=== PATIENT | female | born 1965 | race Caucasian/White ===

== ENCOUNTER 2019-01-14 16:17 | Inpatient (IN) ==
[2019-01-14] MEDS ORDERED: LOVENOX 1 MG/KG SUBQ ONE (16:54)
[2019-01-14] MEDS ORDERED: ATIVAN IV ONE (17:00)
[2019-01-14] MEDS ORDERED: LOVENOX SUBQ ONE (17:15)
[2019-01-14 17:18] LABS: BASO# 0.05 X1000 (0.0-0.2); BASO% 0.4 % (0.0-0.8); EOS# 0.31 X1000 (0.0-0.7); EOS% 2.3 % (0.0-10.0); HEMATOCRIT 40.7 % (37.0-47.0); IMM GRAN# 0.16 X1000 (0.0-0.04); IMM GRAN% 1.2 % (0.0-0.5); LYMPH# 2.26 X1000 (1.2-3.4); LYMPH% 16.5 % (20.5-51.1); MCH 28.9 PG (27-31); MCHC 34.4 g/dL (33-37); MCV 83.9 FL (81-99); MONO# 1.25 X1000 (0.11-0.59); MONO% 9.1 % (1.7-9.3); MPV 8.3 FL (7.4-10.4); NEUT# 9.66 X1000 (1.4-6.5); NEUT% 70.5 % (42.2-75.2); PLT 163 X1000 (130-400); RBC 4.85 XMIL (4.2-5.4); RDW 12.7 % (11.5-14.5); WBC 13.69 X1000 (4.8-10.8)
[2019-01-14 17:30] LABS: INR 0.94; PROTIME 13.4 Seconds (11.0-16.0)
[2019-01-14 17:32] LABS: PTT 76.9 Seconds (22.3-41.8)
[2019-01-14 18:15] LABS: AGAP 13; ALB/GLOB RATIO 1.6; ALBUMIN 4.3 g/dL (3.5-5.0); ALKALINE PHOSPHATASE 145 U/L (32-104); BUN 13 mg/dL (8-22); CALCIUM 8.9 mg/dL (8.8-10.2); CHLORIDE 95 mmol/L (98-107); COSMO 273; CREATININE 0.8 mg/dL (0.5-0.9); ESTIMATED GFR > 60; GLUCOSE 251 mg/dL (70-104); GOT 14 U/L (10-30); GPT 13 U/L (10-36); POTASSIUM 4.1 mmol/L (3.5-5.1); SODIUM 132 mmol/L (136-145); TCO2 24 mmol/L (25-35); TOTAL BILIRUBIN 0.56 mg/dL (0.20-1.00)
[2019-01-14] MEDS ORDERED: ULTRAM PO ONE (19:10)
--- NOTE | 2019-01-14 19:35 | Diag Imaging Result Doc PS360 ---
CT ANGIOGRM PULMONARY ARTERIES - 01/14/2019 INDICATION: pe TECHNIQUE: Axial CT images were obtained after administering intravenous contrast. Coronal MIP images were generated. COMPARISON: None FINDINGS: There are several bilateral pulmonary emboli. The largest completely fills the left lower lobe pulmonary artery. The others are scattered throughout segmental arteries. Heart size is normal with no pericardial effusion. There is severe fatty change of the liver. The lungs are clear of infiltrate. There is a granuloma in the left lower lobe. Bones are intact. IMPRESSION: 1. Several bilateral pulmonary emboli. 2. Severe fatty liver. 3. This report was discussed with Dr. Mac on 01/14/2019 at 7:30 PM and was readback. This exam was performed using automated exposure control, adjustment of mA or kV according to patient size, and/or use of iterative reconstruction technique Electronically signed by Steven Mccarthy 01/14/2019 7:33 PM
--- NOTE | 2019-01-14 19:41 | PROVIDER DOCUMENTATION ---
This chart was entered by Sowmya Mcdaniels Scribe, acting as scribe for Sonia Mac MD. HPI-Musculoskeletal Pain/Inj - GENERAL Chief Complaint: Extremity Pain Stated Complaint: BLOOD CLOT DR REFERRED Time Seen by Provider: 01/14/19 16:36 Source: patient - HX OF PRESENT ILLNESS-MUSKULOSKELTAL Nature of Presenting Problem: 53 yof presents to the ed per referal of [facility] after US was done today and pt has +DVT in RLE. pt stys has had nausea, pain and swelling to RLE with sob for 2 days. pt on exam has swollen red and painful RLE Quality of Pain: reports: aching Severity in ED: moderate Onset/Duration: 2 days ago Timing: still present, getting worse Modifying Factors: worse with: movement, palpation Any recent injury?: No Locality of Occurance: Home Similar Symptoms Previously?: No Recently seen or treated by another doctor?: Yes ([facility]) Review of Systems - Adult - REVIEW OF SYSTEMS - ADULT Constitutional: denies: chills, fever Eyes: reports: no symptoms reported Ears, Nose, Mouth & Throat: reports: no symptoms reported Cardiovascular: reports: see HPI, edema. denies: chest pain, palpitations Respiratory: reports: see HPI, shortness of breath. denies: wheezing Gastrointestinal: reports: nausea. denies: abdominal pain, diarrhea, vomiting Genitourinary: reports: no symptoms reported Musculoskeletal: reports: see HPI, other (RLE) Integumentary: reports: no symptoms reported Neurological: denies: dizziness/vertigo, headache/migraines Psychiatric: reports: no symptoms reported Endocrine: reports: no symptoms reported Hematologic/Lymphatic: reports: see HPI, blood clots Allergic/Immunologic: reports: no symptoms reported All Other Systems: Reviewed and Negative Past History - Adult - PAST MEDICAL HISTORY-ADULT Review of Records: reports: Old Records Reviewed, Nursing Assessment Review, Medications Reviewed, Social history reviewed & non-contributory. Major Childhood Illnesses: reports: denies history Cardiovascular: reports: HTN, hyperlipidemia Respiratory: reports: denies history Gastrointestinal: reports: GERD Obstetrical/Gynecological: reports: denies history Genitourinary: reports: denies history Musculoskeletal: reports: denies history Hand Dominance: Right Handed Neurological: reports: denies history Psychiatric: reports: depression Endocrine/Immune: reports: denies history Other Conditions: reports: denies history - PRIOR SURGERIES/PROCEDURES Surgical/Procedure History: reports: cholecystectomy, tonsillectomy - IMMUNIZATION STATUS Childhood Immunizations: See Nurse Assessment Flu Vaccine: See Nurse Assessment - FAMILY HISTORY Family History: reviewed, not pertinent - SOCIAL HISTORY Smoking: cigarettes, less than 1 pack/day Provider spent 3-5 mins advising pt. on dangers of tobacco.: Discussed manners to quit use, and f/u contacts for add'l counseling. Substance Use: denies Alcohol Use Frequency: never Living Situation: family Physical Exam-Injury Related - Physical Exam-Injury Related Initial Vital Signs Reviewed: Yes General Appearance: appears well, alert, mild distress Eyes: PERRL/EOMI, pink conjunctivae Head, Ears, Nose, Mouth & Throat: moist mucous membranes, normal ENT inspection Neck: non-tender, full range of motion, supple, normal inspection Respiratory: chest non-tender, lungs clear, normal breath sounds Cardiovascular: normal peripheral pulses, tachycardia (132) Chest/Breast: deferred Abdominal Exam: normal bowel sounds, non tender, soft Female Genitalia/Pelvic Exam: deferred Rectal Exam: deferred Hemoccult Exam: deferred Lymphatic: no adenopathy Back Exam: normal inspection, no CVA tenderness, no vertebral tenderness Extremity: normal inspection, no pedal edema, normal capillary refill, pelvis stable, swelling (RLE), tenderness (RLE) Integumentary: normal color, warm/dry, erythema (RLE), swelling (RLE), tender ness (RLE), warm (RLE) Neurologic: grossly normal, no motor/sensory deficits Psych/Mental Status: normal mood/affect, normal thought content, normal thought process, oriented x 3 - Glascow Coma Score Best Eye Response (Wynne): (4) open spontaneously Best Verbal Response (Wynne): (5) oriented Best Motor Response (Raj): (6) obeys commands Wynne Total: 15 Progress - PLAN OF CARE/RESULTS Progress/Plan/Lab Results: Vital Signs - 8 hr 01/14/19 16:32 Temperature 98.4 F Pulse Rate 132 H Respiratory Rate 20 Blood Pressure 103/73 O2 Sat by Pulse Oximetry 96 Laboratory Results - last 24 hr 01/14/19 01/14/19 01/14/19 17:00 17:00 17:00 WBC 13.69 H RBC 4.85 Hgb 14.0 Hct 40.7 MCV 83.9 MCH 28.9 MCHC 34.4 RDW Std Deviation 12.7 Plt Count 163 MPV 8.3 Immature Gran % (Auto) 1.2 H Neut % (Auto) 70.5 Lymph % (Auto) 16.5 L [place] % (Auto) 9.1 Eos % (Auto) 2.3 Baso % (Auto) 0.4 Immature Gran # (Auto) 0.16 H Neut # (Auto) 9.66 H Lymph # (Auto) 2.26 [place] # (Auto) 1.25 H Eos # (Auto) 0.31 Baso # (Auto) 0.05 PT INR PTT (Actin FS) Sodium 132 L Potassium 4.1 Chloride 95 L Carbon Dioxide 24 L Anion Gap 13 BUN 13 Creatinine 0.8 Estimated GFR/1.73 m2 > 60 BUN/Creatinine Ratio 16 Glucose 251 H Calculated Osmolality 273 Calcium 8.9 Total Bilirubin 0.56 AST 14 ALT 13 Alkaline Phosphatase 145 H Total Protein 7.0 Albumin 4.3 Globulin 2.7 Albumin/Globulin Ratio 1.6 TSH 0.88 01/14/19 17:00 WBC RBC Hgb Hct MCV MCH MCHC RDW Std Deviation Plt Count MPV Immature Gran % (Auto) Neut % (Auto) Lymph % (Auto) [place] % (Auto) Eos % (Auto) Baso % (Auto) Immature Gran # (Auto) Neut # (Auto) Lymph # (Auto) [place] # (Auto) Eos # (Auto) Baso # (Auto) PT 13.4 INR 0.94 PTT (Actin FS) 76.9 H Sodium Potassium Chloride Carbon Dioxide Anion Gap BUN Creatinine Estimated GFR/1.73 m2 BUN/Creatinine Ratio Glucose Calculated Osmolality Calcium Total Bilirubin AST ALT Alkaline Phosphatase Total Protein Albumin Globulin Albumin/Globulin Ratio TSH Orders Category Date Time Status If abnormal EKG, order: NOW Care 01/14/19 16:55 Active CTA [CT ANGIOGRM PULMONARY ARTERIES] [CT] Stat Exams 01/14/19 16:53 Completed CBC WITH ELECTRONIC DIFF [HEME] Stat Lab 01/14/19 17:00 Completed COMPREHENSIVE METABOLIC PANEL [CHEM] Stat Lab 01/14/19 17:00 Completed PROTIME WITH INR [COAG] Stat Lab 01/14/19 17:00 Completed PTT [COAG] Stat Lab 01/14/19 17:00 Completed TSH Stat Lab 01/14/19 17:00 Completed Enoxaparin [Lovenox] Med 01/14/19 17:15 Discontinued 80 mg SUBQ NOW ONE Lorazepam [Ativan] Med 01/14/19 17:00 Discontinued 0.5 mg IV NOW ONE Tramadol [Ultram] Med 01/14/19 19:10 Discontinued 50 mg PO NOW ONE [facility] - [address] [facility], [address], [place] [address] [facility] - [address] [place] [address] Department of Imaging Patient: SHEELA RILEY ADM Date: 01/14/19 MR#: [id number] : 1965 ADM Status: REG ER Age/Sex: 53/F Room/Bed: Loc: ED Ordering Physician: Sonia Mac MD Family Physician: Walter Kee MD Reason for Procedure: pe Signed CT ANGIOGRM PULMONARY ARTERIES - 01/14/2019 INDICATION: pe TECHNIQUE: Axial CT images were obtained after administering intravenous contrast. Coronal MIP images were generated. COMPARISON: None FINDINGS: There are several bilateral pulmonary emboli. The largest completely fills the left lower lobe pulmonary artery. The others are scattered throughout segmental arteries. Heart size is normal with no pericardial effusion. There is severe fatty change of the liver. The lungs are clear of infiltrate. There is a granuloma in the left lower lobe. Bones are intact. IMPRESSION: 1. Several bilateral pulmonary emboli. 2. Severe fatty liver. 3. This report was discussed with Dr. Mac on 01/14/2019 at 7:30 PM and was readback. This exam was performed using automated exposure control, adjustment of mA or kV according to patient size, and/or use of iterative reconstruction technique Electronically signed by Steven Mccarthy 01/14/2019 7:33 PM 01/14/191932 Interpreting Physician: Steven Mccarthy MD Dictated Date/Time: 01/14/191929 cc: Sonia Mac MD; Walter Kee MD Result Diagrams: 01/14/19 17:00 01/14/19 17:00 - REASSESSMENT Reassessment #1 Time Reassessed: 17:21 Status: unchanged - EKG 1 Time of EKG reading by physician:: 17:16 EKG Read and Signed by:: Sonia Mac EKG Interpretation (*Must complete 3 of following elements*): Normal (borderline) Rate: 117 Rhythm: sinus tachycardia [place]: normal QRS: other (low voltage QRS) GA Interval: normal ST Wave: normal Comments: possible left atrial enlargement - CONSULTS/PCP/HOSPITALIST Notification #1 *Consult/PCP/Hospitalist*: Dr. Duran Time Discussed: 19:50 Consult Disposition: Admit Departure - Departure Date of Disposition Decision: 01/14/19 Time of Disposition Decision: 19:39 DIAGNOSIS: Tobacco use disorder, Bilateral pulmonary embolism DVT (deep venous thrombosis) Qualifiers: DVT location: lower extremity Affected thrombotic vein of extremity: unspecified vein of extremity Chronicity: acute Laterality: right Qualified C ode(s): I82.401 - Acute embolism and thrombosis of unspecified deep veins of right lower extremity Disposition: ADMITTED INPATIENT 09 Certified Medical Emergency: Emergent Condition: Stable Referrals and Follow-Ups: None,PCP [NON-STAFF PROVIDER] - - Critical Care Note This patient required my direct & personal management of CC.: Yes Total Time (mins): 35 Critical Care Statement: This patient required my direct personal management to treat or rule out processes, the absence of which, could potentiallly result in sudden, clinically significant life or limb threatening deterioration. Attestation - Physician/ ANUJA Attestation Patient care was provided by Advanced Practice Provider:: No The physician spent face to face time with patient:: Yes Advanced Practice Provider documentation review:: Supervising physician onsite and consulted in the evaluation and care of this patient. The physician did have a face to face encounter with the patient. This chart was documented by the indicated scribe, (Sowmya Mcdaniels Scribe) and accurately reflects the services I performed and decisions made by me, Sonia Mac MD, as attested by the provider's signature.
[2019-01-14] MEDS ORDERED: CYMBALTA PO SCH (21:00)
--- NOTE | 2019-01-14 21:31 | HISTORY AND PHYSICAL ---
PRIMARY CARE PHYSICIAN: Dr. Magi Gil. CHIEF COMPLAINT: Right leg pain and swelling for past 3 days. HISTORY OF PRESENTING ILLNESS: A 53-year-old female, with a history of diabetes mellitus type 2, hypertension, hyperlipidemia, and hypothyroidism, who had initially presented to Urgent Care with a complaint of right leg swelling. She was evaluated there. She had an ultrasound done which showed a DVT and subsequently she was sent to the emergency department. At ED, she was complaining also of shortness of breath and subsequently a CT angiogram was done which did show bilateral pulmonary emboli. Due to these findings, she will require admission for further management. At the time of my examination, she denied any headache, fever, chills, hemoptysis, melena, or any weight changes, but complained of right leg pain and shortness of breath. PAST MEDICAL HISTORY: Includes: 1. Diabetes mellitus type 2. 2. Hypertension. 3. Hyperlipidemia. 4. Hypothyroidism. 5. GERD. PAST SURGICAL HISTORY: 1. Cervical fusion. 2. Cholecystectomy. 3. Tonsillectomy. 4. Hemorrhoidectomy. ALLERGIES: Scopolamine, Toradol, statins, and adhesive tape. CURRENT MEDICATIONS: Include: 1. Bupropion 100 mg p.o. daily. 2. Clonazepam 1.5 mg p.o. at bedtime. 3. Flexeril 10 mg p.o. daily p.r.n. 4. Duloxetine 60 mg p.o. daily. 5. Glipizide 10 mg p.o. daily. 6. Levothyroxine 88 mcg p.o. daily. 7. Omeprazole 40 mg p.o. b.i.d. 8. Promethazine 25 mg p.o. q.12 hours. 9. Januvia 100 mg p.o. daily. 10. Trazodone 100 mg p.o. at bedtime. SOCIAL HISTORY: A 30+ pack year history of smoking. Denies any history of alcohol or illicit drug use. FAMILY HISTORY: No history of coronary disease. REVIEW OF SYSTEMS: A 14 point review of systems is as in HPI. Other systems negative. PHYSICAL EXAMINATION: GENERAL: Cooperative, friendly female. She is resting comfortably now. VITAL SIGNS: Temperature 98.4 degrees, pulse 132, respirations 20, blood pressure 103/73. HEENT: Atraumatic, normocephalic. Extraocular movements intact. PERRLA. NECK: No masses. CHEST: Clear to auscultation. CARDIOVASCULAR: Regular rate and rhythm. ABDOMEN: Soft. Positive bowel sounds. EXTREMITY: Right lower extremity shows edema and tenderness. : No bladder distention. NEUROLOGIC: Nonfocal. SKIN: Warm. LABORATORIES AND STUDIES: WBC 13.69, hemoglobin 14.1, hematocrit 40.7, platelets 163,000. Sodium 132, potassium 4.1, chloride 95, CO2 24, BUN is 13, creatinine 0.8, glucose is 251. Pulmonary arteriogram shows several bilateral pulmonary emboli. ASSESSMENT: A 53-year-old female with a history of diabetes mellitus type 2, hypertension, hyperlipidemia, and hypothyroidism, who had presented to emergency department with a complaint of right lower extremity pain and shortness of breath. She was evaluated in the emergency room. She had imaging done which did show pulmonary emboli, and also she had an ultrasound that showed a right deep venous thrombosis. Due to these findings, she will require admission for further management. 1. Acute pulmonary thromboembolism. 2. Right deep venous thrombosis on lower extremity. 3. Diabetes mellitus type 2. 4. Hypertension. PLAN: 1. Will admit patient to medical floor with telemetry. 2. Will start patient on anticoagulation with Lovenox. First dose was already given. 3. Will give patient adequate pain control. 4. Patient to decide which oral anticoagulant to start in the morning. 5. Will monitor blood glucoses and put patient on sliding scale insulin regimen. 6. Will monitor blood pressure closely and resume antihypertensive agent. 7. The patient is already on anticoagulation for acute treatment of deep venous thrombosis and pulmonary embolism. 8. Will continue to follow and reassess, and make further recommendations based on patient's clinical course. cc: Trevon Duran MD
[2019-01-15] MEDS: HUMULIN R SUBQ SCH ×5 (00:50→21:24)
[2019-01-15] MEDS: KLONOPIN PO SCH ×2 (00:54→20:08)
[2019-01-15] MEDS: PRILOSEC PO SCH ×3 (00:55→16:48)
[2019-01-15] MEDS: DESYREL PO SCH ×2 (00:58→20:08)
[2019-01-15] MEDS: CYMBALTA PO SCH ×2 (02:09→20:08)
[2019-01-15 06:00] LABS: BASO# 0.06 X1000 (0.0-0.2); BASO% 0.6 % (0.0-0.8); EOS# 0.37 X1000 (0.0-0.7); EOS% 3.8 % (0.0-10.0); HEMATOCRIT 38.2 % (37.0-47.0); HEMOGLOBIN 12.8 g/dL (12.0-16.0); IMM GRAN# 0.13 X1000 (0.0-0.04); IMM GRAN% 1.3 % (0.0-0.5); LYMPH# 2.73 X1000 (1.2-3.4); LYMPH% 27.9 % (20.5-51.1); MCH 28.5 PG (27-31); MCHC 33.5 g/dL (33-37); MCV 85.1 FL (81-99); MONO# 1.03 X1000 (0.11-0.59); MONO% 10.5 % (1.7-9.3); MPV 8.5 FL (7.4-10.4); NEUT# 5.45 X1000 (1.4-6.5); NEUT% 55.9 % (42.2-75.2); PLT 165 X1000 (130-400); RBC 4.49 XMIL (4.2-5.4); RDW 12.7 % (11.5-14.5); WBC 9.77 X1000 (4.8-10.8)
[2019-01-15] MEDS: SYNTHROID PO SCH (06:19)
[2019-01-15] MEDS: LOVENOX SUBQ SCH ×2 (06:20→16:48)
[2019-01-15 06:21] LABS: AGAP 12; BUN 11 mg/dL (8-22); CALCIUM 8.9 mg/dL (8.8-10.2); CHLORIDE 99 mmol/L (98-107); COSMO 282; CREATININE 0.8 mg/dL (0.5-0.9); ESTIMATED GFR > 60; GLUCOSE 227 mg/dL (70-104); POTASSIUM 3.7 mmol/L (3.5-5.1); SODIUM 138 mmol/L (136-145); TCO2 27 mmol/L (25-35)
--- NOTE | 2019-01-15 07:18 | EKG Report ---
Test Performed on : 01/14/2019 5:16:47 PM Test Reason : ED. NO EKG ORDER FOR MUSE Blood Pressure : / mmHG Vent. Rate : 117 BPM Atrial Rate : 117 BPM P-R Int : 148 ms QRS Dur : 080 ms QT Int : 334 ms P-R-T Axes : 066 026 053 degrees QTc Int : 465 ms Sinus tachycardia. Possible Left atrial enlargement Low voltage QRS Borderline ECG No previous ECGs available Unconfirmed Result
[2019-01-15] MEDS ORDERED: PRILOSEC PO SCH (09:00)
[2019-01-15] MEDS: WELLBUTRIN PO SCH (09:00)
[2019-01-15] MEDS ORDERED: FLEXERIL PO PRN (12:36)
[2019-01-15] MEDS: JANUVIA PO SCH (12:48)
[2019-01-15] MEDS: ZOFRAN IV PRN (12:54)
[2019-01-15] MEDS ORDERED: NICODERM PATCH TD PRN (13:40)
--- NOTE | 2019-01-15 14:00 | PROGRESS NOTE ---
DATE: 01/15/2019 SUBJECTIVE: The patient has no major complaints. She is very pleasant, no major issues. She is complaining of pain in her leg, though, which she feels is not controlled on current medications. OBJECTIVE: General: Data is pretty good. She is doing fairly well considering she had a PE and has a VTE. Vital Signs: Blood pressure 115/71, heart rate of 107, respiratory 18, temperature 94 degrees, satting 97% on 2 L, but looks like she was on room air when I saw her earlier. GI: Soft, nontender, nondistended. Bowel sounds are positive. Extremities: She does have some pain, swelling in her right lower extremity. No cords were appreciated. Very trace edema. LAB: White count 9, H and H 12 and 38, platelets 165. Sugar 232. Other numbers look okay. PROBLEM LIST: 1. Venous thromboembolism and pulmonary embolism, acute. We will continue anticoagulation. Hopefully, insurance will cover a eliquis. She is on Medicare and Medicaid, so we will attempt to do Eliquis loading. I think if she stabilizes, we will start her on Eliquis tomorrow because she is doing pretty well from that standpoint. 2. Type 2 diabetes, not quite controlled. She is on Januvia and glipizide. We will reinitiate her medications, and we may have to adjust those accordingly. 3. Disposition: Once we can get her oral anticoagulation set up, and Coumadin may have to be an option because she says her Medicare/Medicaid has not very good medication coverage, social work obviously is not available on the fourth, so we will have to watch her through tomorrow, which I think we would be doing in any case and make sure she stabilizes. There is not a clear indication for deep vein thrombosis or pulmonary embolism. No family history. She reports cancer screening is complete. Mammograms, colonoscopies, which she has had some hemorrhoidal bleeding in the past, and we will need to be careful with that. Additionally pelvic exams all have been stable, so we will pursue hypercoagulable workup. She does smoke and she is relatively sedentary, although she says she walks her dog twice a day, so I am not entirely sure why this happened spontaneously. So we will pursue hypercoagulable workup and follow. Hopefully discharge in the next 1 to 2 days. cc: Ivan Covarrubias MD MTDD
[2019-01-15] MEDS: NORCO-7.5 PO PRN ×2 (14:28→20:51)
[2019-01-15] MEDS: GLUCOTROL PO SCH (16:48)
[2019-01-15] MEDS ORDERED: ATIVAN IV ONE (20:57)
[2019-01-15] MEDS ORDERED: KLONOPIN PO SCH (21:00)
[2019-01-15] MEDS ORDERED: DESYREL PO SCH (21:00)
[2019-01-16] MEDS: LOVENOX SUBQ SCH (04:13)
[2019-01-16] MEDS: SYNTHROID PO SCH (05:59)
[2019-01-16] MEDS: PRILOSEC PO SCH ×2 (05:59→16:50)
[2019-01-16] MEDS: HUMULIN R SUBQ SCH ×4 (05:59→21:03)
[2019-01-16 06:04] LABS: BASO# 0.04 X1000 (0.0-0.2); BASO% 0.5 % (0.0-0.8); EOS# 0.33 X1000 (0.0-0.7); EOS% 3.8 % (0.0-10.0); HEMATOCRIT 35.9 % (37.0-47.0); HEMOGLOBIN 12.1 g/dL (12.0-16.0); IMM GRAN# 0.09 X1000 (0.0-0.04); LYMPH# 2.36 X1000 (1.2-3.4); LYMPH% 27.3 % (20.5-51.1); MCH 28.5 PG (27-31); MCHC 33.7 g/dL (33-37); MCV 84.7 FL (81-99); MONO# 0.86 X1000 (0.11-0.59); MONO% 9.9 % (1.7-9.3); MPV 8.4 FL (7.4-10.4); NEUT# 4.97 X1000 (1.4-6.5); NEUT% 57.5 % (42.2-75.2); PLT 180 X1000 (130-400); RBC 4.24 XMIL (4.2-5.4); RDW 12.5 % (11.5-14.5); WBC 8.65 X1000 (4.8-10.8)
[2019-01-16 06:26] LABS: HEMOGLOBIN A1C 8.3 % (4.8-6.0)
[2019-01-16 06:29] LABS: AGAP 13; BUN 11 mg/dL (8-22); CALCIUM 8.6 mg/dL (8.8-10.2); CHLORIDE 99 mmol/L (98-107); COSMO 285; CREATININE 0.6 mg/dL (0.5-0.9); ESTIMATED GFR > 60; GLUCOSE 247 mg/dL (70-104); POTASSIUM 3.9 mmol/L (3.5-5.1); SODIUM 139 mmol/L (136-145); TCO2 27 mmol/L (25-35)
[2019-01-16] MEDS: WELLBUTRIN PO SCH (08:32)
[2019-01-16] MEDS: JANUVIA PO SCH (08:32)
[2019-01-16] MEDS ORDERED: GLUCOTROL PO SCH (09:00)
[2019-01-16] MEDS: NORCO-7.5 PO PRN (12:22)
[2019-01-16] MEDS: KLONOPIN PO PRN ×2 (14:47→19:58)
--- NOTE | 2019-01-16 15:31 | PROGRESS NOTE ---
DATE: 01/16/2019 SUBJECTIVE: The patient is doing well. She is a little anxious, but no major complaints. OBJECTIVE: Blood pressure 123/80, heart rate of 102, respiratory rate 16, temperature 98.4 degrees, 98% on room air.Cardiovascular: Regular rate and rhythm. Pulmonary: Bilateral breath sounds clear to auscultation. GI: Soft, nontender, nondistended. Bowel sounds are positive. LABORATORY DATA: White count is 8, hemoglobin and hematocrit is [id number], platelets 180,000. Basic was normal. PROBLEM LIST: 1. VTE, PE, acute. We will continuing anticoagulation. I am going to switch her to Eliquis this evening and see how she does. 2. Start to work on ambulation. 3. Diabetes is relatively well controlled. We will continue her oral agents and follow her blood sugars. 4. Tobacco abuse. We will continue to monitor. Advised on cessation. I have put in some p.r.n. Klonopin. Apparently she is allergic to the NicoDerm adhesive. She is already on Wellbutrin. DISPOSITION: Anticipate discharge hopefully in the next day or 2. cc: Ivan Covarrubias MD [facility]
[2019-01-16] MEDS: GLUCOTROL PO SCH (16:50)
[2019-01-16] MEDS: PERCOCET-10 PO PRN ×2 (16:55→22:50)
[2019-01-16] MEDS: CYMBALTA PO SCH (20:57)
[2019-01-16] MEDS: ELIQUIS PO SCH (20:58)
[2019-01-16] MEDS: KLONOPIN PO SCH (20:58)
[2019-01-16] MEDS: DESYREL PO SCH (20:58)
[2019-01-16] MEDS: ZOFRAN IV PRN (22:50)
[2019-01-17] MEDS: PERCOCET-10 PO PRN ×3 (05:05→18:43)
[2019-01-17] MEDS: ZOFRAN IV PRN ×3 (05:05→18:43)
[2019-01-17 05:58] LABS: BASO# 0.07 X1000 (0.0-0.2); BASO% 0.8 % (0.0-0.8); EOS# 0.35 X1000 (0.0-0.7); EOS% 3.8 % (0.0-10.0); HEMATOCRIT 37.9 % (37.0-47.0); HEMOGLOBIN 12.5 g/dL (12.0-16.0); IMM GRAN# 0.13 X1000 (0.0-0.04); IMM GRAN% 1.4 % (0.0-0.5); LYMPH# 2.92 X1000 (1.2-3.4); LYMPH% 31.7 % (20.5-51.1); MCH 28.3 PG (27-31); MCV 85.7 FL (81-99); MONO# 1.01 X1000 (0.11-0.59); MPV 8.4 FL (7.4-10.4); NEUT# 4.74 X1000 (1.4-6.5); NEUT% 51.3 % (42.2-75.2); PLT 191 X1000 (130-400); RBC 4.42 XMIL (4.2-5.4); RDW 12.6 % (11.5-14.5); WBC 9.22 X1000 (4.8-10.8)
[2019-01-17] MEDS: HUMULIN R SUBQ SCH ×4 (06:29→20:55)
[2019-01-17] MEDS: SYNTHROID PO SCH (06:41)
[2019-01-17] MEDS: PRILOSEC PO SCH ×2 (06:41→17:12)
[2019-01-17] MEDS: KLONOPIN PO PRN (06:42)
[2019-01-17] MEDS: WELLBUTRIN PO SCH (08:51)
[2019-01-17] MEDS: JANUVIA PO SCH (08:51)
[2019-01-17] MEDS: ELIQUIS PO SCH ×2 (08:51→20:54)
[2019-01-17 08:54] LABS: AGAP 11; BUN 10 mg/dL (8-22); CALCIUM 8.8 mg/dL (8.8-10.2); CHLORIDE 101 mmol/L (98-107); COSMO 281; CREATININE 0.7 mg/dL (0.5-0.9); ESTIMATED GFR > 60; GLUCOSE 176 mg/dL (70-104); POTASSIUM 4.3 mmol/L (3.5-5.1); SODIUM 139 mmol/L (136-145); TCO2 27 mmol/L (25-35)
[2019-01-17] MEDS ORDERED: NICOTINE GUM BUCCAL PRN (14:07)
--- NOTE | 2019-01-17 14:32 | PROGRESS NOTE ---
DATE: 01/17/2019 SUBJECTIVE: The patient is doing well. No major complaints. OBJECTIVE: Blood pressure is 120/83, heart rate 96, respiratory rate 18, temperature 97.8 degrees, 98% on 2 L.Cardiovascular: Regular rate and rhythm. Pulmonary: Bilateral breath sounds. Clear to auscultation. GI: Was soft, nontender, nondistended. Her right leg still has some swelling. LABORATORY DATA: Her white count is 9, hemoglobin and hematocrit 12 and 37, platelets 191,000. Basic was normal. Homocystine level is normal. The rest of her testing is still pending. PROBLEM LIST: 1. Acute DVT, PE. I switched her to Eliquis at the loading dose, then she will be able to go home on that. Continue to follow. 2. Type 2 diabetes is not controlled. We will continue glipizide and follow closely. 3. Anxiety disorder. She is on Wellbutrin. She was of course requesting Ativan. Explained that she will have to be on Ativan as needed for her anxiety, but I am not using 2 different benzodiazepines. 4. Diabetes, again uncontrolled. I am going to increase her glipizide. DISPOSITION: I think she will probably be able to go home tomorrow if things are stable. We will continue to monitor closely. cc: Ivan Covarrubias MD
[2019-01-17] MEDS: ATIVAN PO PRN ×3 (15:36→23:09)
[2019-01-17] MEDS: GLUCOTROL PO SCH ×2 (17:12→20:54)
[2019-01-17] MEDS: DESYREL PO SCH (20:54)
[2019-01-17] MEDS: CYMBALTA PO SCH (20:54)
[2019-01-18] MEDS: PERCOCET-10 PO PRN ×3 (00:40→14:18)
[2019-01-18] MEDS: ZOFRAN IV PRN ×2 (00:47→09:46)
[2019-01-18] MEDS: ATIVAN PO PRN ×2 (03:57→10:02)
[2019-01-18] MEDS: SYNTHROID PO SCH (05:59)
[2019-01-18] MEDS: PRILOSEC PO SCH (05:59)
[2019-01-18] MEDS: HUMULIN R SUBQ SCH ×3 (05:59→16:30)
[2019-01-18] MEDS: ELIQUIS PO SCH (09:45)
[2019-01-18] MEDS: JANUVIA PO SCH (09:45)
[2019-01-18] MEDS: WELLBUTRIN PO SCH (09:46)
[2019-01-18] MEDS: GLUCOTROL PO SCH (09:46)
[2019-01-18 11:06] VITALS: BP 110/68
--- NOTE | 2019-01-18 17:22 | DISCHARGE SUMMARY ---
ADMISSION DATE: 01/14/2019 DISCHARGE DATE: 01/18/2019 DISCHARGE DIAGNOSES: 1. Bilateral pulmonary emboli. 2. Deep vein thrombosis of the right lower extremity. HOSPITAL COURSE: Discharge diagnosis as described. Briefly, this is a 53-year-old female who presented with pain and swelling in her leg. She was seen as an outpatient and found to have a large DVT. She was sent here for evaluation for admission. She had been complaining of shortness of breath, so CT angiogram was done, and it showed bilateral PE. She was subsequently admitted. Initially placed on Lovenox. She did not have any clear indication for PE. She leads a fairly sedentary lifestyle. She is a smoker. Her malignancy screening was up to date. We sent off the hypercoagulable workup. The patient actually did fairly well, ambulating without difficulty. She was not even anemic. Hemoglobin 12, hematocrit 37. Sugars have been fairly stable. In any case, patient was evaluated and discharged home on Eliquis on the . Saturations were 99% on room air, and she was felt stable. I did refer her to Dr. Jones just to follow up on her other medications, her hypercoagulable workup, and for further evaluation for long-term anticoagulation. She has no family history. DISCHARGE MEDICATIONS: Bupropion 100 daily, Klonopin 1.5 at bedtime, duloxetine 60 daily, Flexeril p.r.n., Glucotrol 10 daily, Januvia 100 daily, Synthroid 88 daily, Prilosec 40 b.i.d., promethazine p.r.n., trazodone 100 at bedtime, Ativan 1 t.i.d. p.r.n. anxiety (this was just short- term, I told her she could not take her Klonopin additionally), apixaban 10 b.i.d. for 7 days and 5 b.i.d., and Percocet 10 mg 1 q.6 h. p.r.n. pain. DISCHARGE CONDITION: Stable. cc: MD Carmen Parker MD [place] [facility] Noterman
== END 2019-01-18 16:31 | disposition home or self-care (01) | DRG 176 ==
LOC: ED 16:17 → SUATTDRO 22:56 → 3S 22:56
PROVIDERS: ATTEND Internal Medicine
CPT/HCPCS: 71275; 80048; 80053; 81240; 81241; 82948; 83036; 83090; 84443; 85025; 85300; 85301; 85302; 85306; 85610; 85612; 85613; 85730; 86147; 93005; 96372; 96374; 99285; 99291; A9270; J1650; J2060; J2405; Q9967; S4995; XXXXX